=== PATIENT | male | born 1960 | race American Indian/Alaskan Native ===

== ENCOUNTER 2017-10-31 10:34 | Outpatient (CLI) | payer OTHER ==
--- NOTE | 2017-11-01 00:17 | Magnetic Resonance Report ---
FINAL REPORT PROCEDURE: MR LE NONJOINT RT WO/W CON TECHNIQUE: Magnetic resonance imaging of the RIGHT foot was performed using standard pulse sequences before and after the IV injection of paramagnetic contrast. HISTORY: Encounter for screening, unspecified COMPARISON: No prior studies are available for comparison. FINDINGS: Dorsal extensor tendons: Normal. Plantar flexor tendons: Normal. Plantar muscle bellies: Normal. Plantar fascia: Normal. Osseous structures: There is edema in the lateral aspect of the navicular bone. There is a subchondral cyst measuring 4 millimeters. 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 No specific evidence of fracture or avascular necrosis is seen. The bony structures are otherwise unremarkable. Neurovascular bundles: Normal. Soft tissues: Normal. Abnormal contrast enhancement: Normal. IMPRESSION: Subchondral degenerative cystic changes and edema of the lateral aspect of the navicular bone. There are no fractures or malalignments. Soft tissues are unremarkable.
== END 2017-10-31 10:35 | disposition home or self-care (01) ==
LOC: MRI 10:34
DX: M19.071 Primary osteoarthritis, right ankle and foot (principal); M85.40 Solitary bone cyst, unspecified site
CPT/HCPCS: 73720; A9577